=== PATIENT | female | born 1940 | race Caucasian/White ===

== ENCOUNTER 2017-09-13 15:46 | Inpatient (IN) | payer MEDICARE, OTHER ==
[~2017-09-13] VITALS: Ht 149.9 cm; Wt 80.0 kg
[~2017-09-13 15:46] MED LIST: ASPI81TA50 PO; BRIN8DRO RIGHTEYE; CLON0.1T PO; DILT360C26 PO; GABA600T2 PO; HYDR-3245 PO; ISOS30TA8 PO; LATA2.5D3 EACHEYE; LOSA50TA2 PO; NEBI20TA2 PO; NITR0.4T SL; POLY17PO5 PO; RANI150C PO; SENN1TAB7 PO
[2017-09-13] MEDS ORDERED: SODIUM CHLORIDE FLUSH 10ML SYR IVF ONE (16:00)
[2017-09-13 16:19] LABS: HEMATOCRIT 40.7 % (34.6-47.8); HEMOGLOBIN 13.7 g/dL (11.7-16.4); WHITE BLOOD COUNT 14.1 x10^3/uL (3.4-10)
[2017-09-13 16:29] LABS: BLOOD UREA NITROGEN 15 mg/dL (7-18)
[2017-09-13 16:37] LABS: IS PT STATUS REG ER OR PRE ER? YES
[2017-09-13] MEDS ORDERED: SODIUM CHLORIDE 0.9% 1,000 ML IV SCH (18:56)
[2017-09-13] MEDS ORDERED: ONDANSETRON 2MG/ML, 2ML IVPush PRN (19:00)
[2017-09-13] MEDS ORDERED: ENALAPRILAT 1.25 MG/ML, 2ML IVPush PRN (19:00)
[2017-09-13 21:43] VITALS: BP 143/69
[2017-09-13] MEDS ORDERED: HYDROcodone/APAP 5/325 TABLET ONE (22:19)
[2017-09-13] MEDS: HYDROcodone/APAP 5/325 TABLET PO PRN (22:29)
[2017-09-13] MEDS: FAMOTIDINE 20 MG/2 ML IVPush SCH (22:29)
[2017-09-13] MEDS ORDERED: ZOLPIDEM 10MG TABLET PO PRN (22:30)
[2017-09-13 22:57] LABS: IS PT STATUS REG ER OR PRE ER? NO
[2017-09-13] MEDS: DILTIAZEM MC SCH (23:37)
[2017-09-14 01:22] VITALS: BP 116/60
[2017-09-14] MEDS: ACETAMINOPHEN 325 MG TABLET PO PRN ×2 (04:49→17:44)
[2017-09-14 05:10] LABS: HEMATOCRIT 35.8 % (34.6-47.8); HEMOGLOBIN 12.1 g/dL (11.7-16.4); WHITE BLOOD COUNT 18.6 x10^3/uL (3.4-10)
[2017-09-14 05:14] LABS: BLOOD UREA NITROGEN 15 mg/dL (7-18)
[2017-09-14 05:22] LABS: ASPARTATE AMINO TRANSFERASE 27 U/L (15-37)
[2017-09-14 05:24] LABS: IS PT STATUS REG ER OR PRE ER? NO
[2017-09-14 05:47] LABS: DIFF TOTAL CELLS COUNTED 100 CELL DIFF
[2017-09-14 05:49] LABS: VERIFY COUNTS? YES
[2017-09-14] MEDS: HYDROcodone/APAP 5/325 TABLET PO PRN (07:15)
[2017-09-14] MEDS: DILTIAZEM MC SCH ×3 (07:45→20:24)
[2017-09-14 07:52] VITALS: BP 142/78
[2017-09-14] MEDS ORDERED: HYDROmorphone 1 MG/ML, 1ML IV PRN (08:00)
[2017-09-14] MEDS: FAMOTIDINE 20 MG/2 ML IVPush SCH ×2 (08:18→19:32)
[2017-09-14] MEDS: MORPHINE SULFATE 4 MG/ML, 1ML IVPush PRN ×2 (08:18→19:32)
[2017-09-14] MEDS ORDERED: ASPIRIN 81 MG TABLET EC PO SCH (09:00)
[2017-09-14] MEDS ORDERED: DILTIAZEM 60 MG TABLET PO SCH (09:00)
[2017-09-14] MEDS ORDERED: GABAPENTIN 300 MG CAPSULE PO SCH (09:00)
[2017-09-14] MEDS: D5%-LACTATED RINGERS 1,000 ML IV SCH ×2 (12:11→18:30)
[2017-09-14 13:55] VITALS: BP 141/75
[2017-09-14] MEDS ORDERED: CEFOTETAN PMX 2GM/50ML 50 ML IV SCH (14:00)
[2017-09-14] MEDS ORDERED: BUPIVACAINE/PF 0.5% ONE (15:52)
[2017-09-14] MEDS ORDERED: EPINEPHRINE 1 MG/ML, 1ML ONE (15:52)
[2017-09-14] MEDS ORDERED: FENTANYL PF 100 MCG/2ML ONE ×2 (16:09)
[2017-09-14] MEDS ORDERED: LIDOCAINE/PF 2%, 2ML ONE (16:40)
[2017-09-14] MEDS ORDERED: PROPOFOL 10 MG/ML, 20ML ONE (16:40)
[2017-09-14] MEDS ORDERED: SUCCINYLCHOLINE 20 MG/ML, 10ML ONE (16:40)
[2017-09-14] MEDS ORDERED: ROCURONIUM 10 MG/ML ONE ×2 (16:40)
[2017-09-14] MEDS ORDERED: DEXAMETHASONE 4 MG/ML, 1ML ONE (16:40)
[2017-09-14] MEDS ORDERED: ONDANSETRON 2MG/ML, 2ML ONE (16:40)
[2017-09-14] MEDS ORDERED: SUGAMMADEX 200 MG/2 ML IVPush ONE (17:14)
[2017-09-14] MEDS ORDERED: ACETAMINOPHEN 650 MG/20.3 ML UDC ONE (17:32)
[2017-09-14] MEDS ORDERED: ACETAMINOPHEN 325 MG SUPP ONE (17:32)
[2017-09-14] MEDS ORDERED: ACETAMINOPHEN 325 MG TABLET PO PRN (18:00)
[2017-09-14] MEDS ORDERED: OXYcodone 5 MG/5 ML ORAL.SOL UDC PO PRN (18:00)
[2017-09-14] MEDS ORDERED: FENTANYL PF 100 MCG/2ML IV PRN (18:00)
[2017-09-14] MEDS ORDERED: PROMETHAZINE 25 MG/ML, 1ML IV PRN (18:00)
[2017-09-14] MEDS ORDERED: morphine SULFATE 10 MG/ML, 1ML IV PRN (18:00)
[2017-09-14] MEDS ORDERED: LORazepam 2 MG/ML, 1ML IVPush PRN (18:00)
[2017-09-14] MEDS: NS + 20MEQ KCL 1,000 ML IV SCH ×2 (19:00→20:20)
[2017-09-14 19:05] VITALS: BP 146/83
[2017-09-15 00:57] VITALS: BP 151/80
[2017-09-15] MEDS: ACETAMINOPHEN 325 MG TABLET PO PRN (02:18)
[2017-09-15] MEDS: OXYcodone/APAP 5/325MG TABLET PO PRN ×2 (04:54→17:31)
[2017-09-15 07:03] LABS: HEMATOCRIT 35.1 % (34.6-47.8); HEMOGLOBIN 11.9 g/dL (11.7-16.4)
[2017-09-15 07:10] LABS: BLOOD UREA NITROGEN 13 mg/dL (7-18)
[2017-09-15 07:14] LABS: ASPARTATE AMINO TRANSFERASE 632 U/L (15-37)
[2017-09-15 07:32] LABS: DIFF TOTAL CELLS COUNTED 100 CELL DIFF
[2017-09-15 07:33] LABS: VERIFY COUNTS? YES
[2017-09-15 07:40] VITALS: BP 170/78
[2017-09-15] MEDS: DILTIAZEM MC SCH ×2 (08:53→16:25)
[2017-09-15] MEDS ORDERED: DILTIAZEM HCL PO SCH (09:00)
[2017-09-15] MEDS ORDERED: KETOROLAC 30 MG/1 ML IVPush PRN (09:00)
[2017-09-15] MEDS ORDERED: LOSARTAN 50MG TABLET PO SCH (09:00)
[2017-09-15] MEDS: CEFTRIAXONE PMX 2GM/50ML 50 ML IV SCH (09:07)
[2017-09-15] MEDS: FAMOTIDINE 20 MG/2 ML IVPush SCH ×2 (09:07→20:54)
[2017-09-15] MEDS: NEBIVOLOL HCL 20 MG PO SCH (09:08)
[2017-09-15] MEDS: FAMOTIDINE 40 MG TABLET PO SCH ×2 (09:08→20:53)
[2017-09-15] MEDS: METRONIDAZOLE PMX 500MG/100ML 100 ML IV SCH ×2 (11:33→21:19)
[2017-09-15 14:24] VITALS: BP 159/73
[2017-09-15] MEDS ORDERED: ZOLPIDEM 10MG TABLET PO PRN (17:00)
[2017-09-15 18:50] VITALS: BP 134/87
[2017-09-15] MEDS: PREDNISOLONE ACETATE LEFTEYE SCH (20:53)
[2017-09-15] MEDS: NS + 20MEQ KCL 1,000 ML IV SCH (21:19)
[2017-09-15] MEDS: BRIMONIDINE TARTRATE 0.15% EACHEYE SCH (21:19)
[2017-09-16] MEDS: OXYcodone/APAP 5/325MG TABLET PO PRN ×2 (00:51→20:04)
[2017-09-16 01:20] VITALS: BP 154/83
[2017-09-16] MEDS: METRONIDAZOLE PMX 500MG/100ML 100 ML IV SCH ×3 (04:15→21:59)
[2017-09-16 06:17] LABS: HEMATOCRIT 30.6 % (34.6-47.8); HEMOGLOBIN 10.5 g/dL (11.7-16.4); WHITE BLOOD COUNT 16.3 x10^3/uL (3.4-10)
[2017-09-16 06:26] LABS: ASPARTATE AMINO TRANSFERASE 149 U/L (15-37); BLOOD UREA NITROGEN 11 mg/dL (7-18)
[2017-09-16 08:02] VITALS: BP 154/84
[2017-09-16] MEDS: FAMOTIDINE 20 MG/2 ML IVPush SCH ×2 (08:15→21:00)
[2017-09-16] MEDS: CEFTRIAXONE PMX 2GM/50ML 50 ML IV SCH (08:30)
[2017-09-16] MEDS: FAMOTIDINE 40 MG TABLET PO SCH ×2 (08:30→20:04)
[2017-09-16] MEDS: LOSARTAN 50MG TABLET PO SCH (08:30)
[2017-09-16] MEDS: NEBIVOLOL HCL 20 MG PO SCH (08:31)
[2017-09-16] MEDS: DILTIAZEM CD 360 MG PO SCH (08:31)
[2017-09-16] MEDS: PREDNISOLONE ACETATE LEFTEYE SCH ×3 (08:32→20:04)
[2017-09-16 14:57] VITALS: BP 115/65
[2017-09-16 15:15] VITALS: BP 105/53
[2017-09-16] MEDS: NS + 20MEQ KCL 1,000 ML IV SCH (16:00)
[2017-09-16] MEDS: ONDANSETRON 2MG/ML, 2ML IVPush PRN (17:59)
[2017-09-16 18:34] VITALS: BP 145/80
[2017-09-16] MEDS: BRIMONIDINE TARTRATE 0.15% EACHEYE SCH (20:04)
[2017-09-17 00:40] VITALS: BP 120/66
[2017-09-17] MEDS: METRONIDAZOLE PMX 500MG/100ML 100 ML IV SCH ×3 (06:03→21:49)
[2017-09-17] MEDS: OXYcodone/APAP 5/325MG TABLET PO PRN ×2 (06:09→21:08)
[2017-09-17 08:49] VITALS: BP 131/68
[2017-09-17] MEDS: PREDNISOLONE ACETATE LEFTEYE SCH ×3 (09:00→21:08)
[2017-09-17] MEDS: FAMOTIDINE 20 MG/2 ML IVPush SCH ×3 (09:00→20:57)
[2017-09-17] MEDS: DILTIAZEM CD 360 MG PO SCH (09:00)
[2017-09-17] MEDS: NEBIVOLOL HCL 20 MG PO SCH (09:00)
[2017-09-17] MEDS: CEFTRIAXONE PMX 2GM/50ML 50 ML IV SCH (09:02)
[2017-09-17] MEDS: FAMOTIDINE 40 MG TABLET PO SCH ×2 (09:03→21:08)
[2017-09-17] MEDS: LOSARTAN 50MG TABLET PO SCH (09:03)
[2017-09-17 12:29] VITALS: BP 137/53
[2017-09-17 15:03] VITALS: BP 118/57
[2017-09-17 18:54] VITALS: BP 121/47
[2017-09-17] MEDS: BRIMONIDINE TARTRATE 0.15% EACHEYE SCH (21:08)
[2017-09-18 03:45] VITALS: BP 143/63
[2017-09-18] MEDS: OXYcodone/APAP 5/325MG TABLET PO PRN (04:10)
[2017-09-18 05:48] LABS: HEMATOCRIT 30.2 % (34.6-47.8); HEMOGLOBIN 10.3 g/dL (11.7-16.4); WHITE BLOOD COUNT 12.4 x10^3/uL (3.4-10)
[2017-09-18] MEDS: METRONIDAZOLE PMX 500MG/100ML 100 ML IV SCH ×2 (05:48→13:43)
[2017-09-18 06:00] LABS: ASPARTATE AMINO TRANSFERASE 30 U/L (15-37); BLOOD UREA NITROGEN 8 mg/dL (7-18)
[2017-09-18] MEDS: FAMOTIDINE 20 MG/2 ML IVPush SCH (07:17)
[2017-09-18 08:13] VITALS: BP 152/64
[2017-09-18] MEDS: CEFTRIAXONE PMX 2GM/50ML 50 ML IV SCH (08:23)
[2017-09-18] MEDS: LOSARTAN 50MG TABLET PO SCH (08:26)
[2017-09-18] MEDS: NEBIVOLOL HCL 20 MG PO SCH (08:26)
[2017-09-18] MEDS: FAMOTIDINE 40 MG TABLET PO SCH (08:26)
[2017-09-18] MEDS: DILTIAZEM CD 360 MG PO SCH (08:26)
[2017-09-18] MEDS: PREDNISOLONE ACETATE LEFTEYE SCH ×2 (08:27→16:00)
[2017-09-18] MEDS ORDERED: METR500T8 PO (09:45)
[2017-09-18] MEDS ORDERED: POTASSIUM CHLORIDE 20 MEQ TAB.ER.PRT PO ONE (10:00)
[2017-09-18] MEDS: ONDANSETRON 2MG/ML, 2ML IVPush PRN (10:14)
[2017-09-18 13:58] VITALS: BP 119/49
[2017-09-18] MEDS ORDERED: ENALAPRILAT 1.25 MG/ML, 2ML IVPush PRN (16:00)
[2017-09-18] MEDS ORDERED: ACETAMINOPHEN 325 MG TABLET PO PRN (16:00)
[2017-09-18] MEDS ORDERED: ZOLPIDEM 10MG TABLET PO PRN (16:00)
== END 2017-09-18 15:30 | disposition home or self-care (01) | DRG 417 ==
LOC: ED 17:11 → EDIP 17:12 → ED 17:54 → 5SO 19:27 → 4NOR 09-16 15:16
PROVIDERS: ADMIT Family Medicine; ATTEND Family Medicine
PROC: 0FT44ZZ Resection of Gallbladder, Percutaneous Endoscopic Approach (ICD-10-PCS; principal; 2017-09-14 16:30)
DX: K81.0 Acute cholecystitis (principal); N17.0 Acute kidney failure with tubular necrosis; K82.2 Perforation of gallbladder; I11.9 Hypertensive heart disease without heart failure; E66.01 Morbid (severe) obesity due to excess calories; E78.00 Pure hypercholesterolemia, unspecified; K21.9 Gastro-esophageal reflux disease without esophagitis; G24.9 Dystonia, unspecified; E78.5 Hyperlipidemia, unspecified; G47.00 Insomnia, unspecified; G89.29 Other chronic pain; H40.9 Unspecified glaucoma; I16.0 Hypertensive urgency; I25.10 Atherosclerotic heart disease of native coronary artery without angina pectoris; I44.0 Atrioventricular block, first degree; I45.10 Unspecified right bundle-branch block; K66.0 Peritoneal adhesions (postprocedural) (postinfection); K82.8 Other specified diseases of gallbladder; Z68.33 Body mass index [BMI] 33.0-33.9, adult; Z85.038 Personal history of other malignant neoplasm of large intestine; Z90.722 Acquired absence of ovaries, bilateral; Z66 Do not resuscitate
CPT/HCPCS: 36415; 71010; 78227; 80048; 80053; 80076; 82040; 83690; 83735; 84484; 85025; 88304; 93005; 99285; J0171; J0696; J1100; J1170; J1885; J2405; J2704; J3010; J3480; J3490; A9537; C9898; J0330; J7030; J7121; S0028; S0074

== ENCOUNTER 2017-09-21 11:10 | Emergency (ER) | payer MEDICARE, OTHER ==
[~2017-09-21] VITALS: Ht 152.4 cm; Wt 70.0 kg
[~2017-09-21 11:10] MED LIST changes: +METR500T8 PO
[2017-09-21 11:12] VITALS: BP 153/67
[2017-09-21 12:10] LABS: HEMATOCRIT 32.8 % (34.6-47.8); HEMOGLOBIN 11.1 g/dL (11.7-16.4)
[2017-09-21 12:20] LABS: ASPARTATE AMINO TRANSFERASE 51 U/L (15-37); BLOOD UREA NITROGEN 8 mg/dL (7-18)
== END 2017-09-21 13:52 | disposition home or self-care (01) ==
LOC: ED 13:46
DX: Z48.01 Encounter for change or removal of surgical wound dressing (principal); I10 Essential (primary) hypertension; E78.00 Pure hypercholesterolemia, unspecified
CPT/HCPCS: 36415; 80053; 83690; 85025; 99284

== ENCOUNTER 2019-07-10 12:49 | Outpatient (CLI) | payer MEDICARE, OTHER | END 2019-07-10 23:59 | disposition home or self-care (01) | LOC: STAR 12:49 | PROVIDERS: ATTEND Neurological Surgery | DX: Z01.818 Encounter for other preprocedural examination (principal); M47.26 Other spondylosis with radiculopathy, lumbar region; M48.061 Spinal stenosis, lumbar region without neurogenic claudication; I44.0 Atrioventricular block, first degree; I45.10 Unspecified right bundle-branch block; R00.1 Bradycardia, unspecified | CPT/HCPCS: 36415; 71046; 80053; 81001; 85025; 85610; 85730; 87086; 93005 ==

== ENCOUNTER 2019-07-11 11:52 | Outpatient (CLI) | payer MEDICARE, OTHER | END 2019-07-11 23:59 | disposition home or self-care (01) | LOC: CFH 11:52 | PROVIDERS: ATTEND Internal Medicine Cardiovascular Disease | DX: I45.10 Unspecified right bundle-branch block (principal); R53.83 Other fatigue; I10 Essential (primary) hypertension; Z79.899 Other long term (current) drug therapy | CPT/HCPCS: 78452; 93017; A9502; J2785 ==

== ENCOUNTER 2019-07-16 12:40 | Emergency (ER) | payer MEDICARE, OTHER ==
[~2019-07-16] VITALS: Ht 147.3 cm; Wt 75.0 kg
[2019-07-16 17:00] VITALS: BP 142/50
== END 2019-07-16 17:02 | disposition home or self-care (01) ==
LOC: ED 15:12
DX: R10.84 Generalized abdominal pain (principal); R11.2 Nausea with vomiting, unspecified; R10.32 Left lower quadrant pain; R10.11 Right upper quadrant pain; I10 Essential (primary) hypertension; E78.5 Hyperlipidemia, unspecified; E78.00 Pure hypercholesterolemia, unspecified; Z85.038 Personal history of other malignant neoplasm of large intestine
CPT/HCPCS: 36415; 74176; 80053; 81003; 83690; 85025; 99284

== ENCOUNTER 2021-08-07 08:55 | Outpatient (CLI) | payer MEDICARE, OTHER ==
[~2021-08-07 08:55] MED LIST changes: -CLON0.1T PO; +CLON0.1T22 PO; +DIPH25CA61 PO; -GABA600T2 PO; +GABA600T7 PO; +HYDR-3237 PO; -HYDR-3245 PO; +HYDR1TAB53 PO; -LATA2.5D3 EACHEYE; +LATA2.5D4 EACHEYE; +LOSA100T14 PO; +METR-90 PO; -METR500T8 PO; -NITR0.4T SL; +NITR0.4T41 SL; +OMEP-110 PO; +ROSU10TA2 PO; +SENN-177 PO; -SENN1TAB7 PO; +TIMO5DRO33 EACHEYE; +TRAZ50TA66 PO; +Vitamin D PO
[2021-08-07 09:27] LABS: BASOPHILS % (AUTO) 1 % (0-1); EOSINOPHILS % (AUTO) 2 % (1-7); LYMPHOCYTES % (AUTO) 32 % (22-44); MEAN CORPUSCULAR HEMOGLOBIN 31.5 pg (27.0-34.8); MEAN CORPUSCULAR HGB CONC 34.3 g/dL (32.4-35.8); MONOCYTES % (AUTO) 8 % (2-9); NEUTROPHILS % (AUTO) 58 % (42-75); PLATELET COUNT 252 x10^3/uL (130-400); RED BLOOD COUNT 4.07 x10^6/uL (3.82-5.3)
[2021-08-07 09:37] LABS: ALANINE AMINOTRANSFERASE 114 U/L (12-78); ALBUMIN 3.4 g/dL (3.4-5.0); ANION GAP 6 mmol/L (5-15); CALCIUM 8.9 mg/dL (8.5-10.1); CHLORIDE 110 mmol/L (98-107); CREATININE 0.94 mg/dL (0.55-1.02)
[2021-08-07 09:39] LABS: ALKALINE PHOSPHATASE 211 U/L (45-117); BILIRUBIN,TOTAL 0.8 mg/dL (0.2-1.0); TOTAL PROTEIN 6.9 g/dL (6.4-8.2)
== END 2021-08-07 23:59 | disposition home or self-care (01) ==
LOC: LAB 08:55
PROVIDERS: ATTEND Internal Medicine Cardiovascular Disease
DX: E11.9 Type 2 diabetes mellitus without complications (principal); E78.2 Mixed hyperlipidemia; I25.119 Atherosclerotic heart disease of native coronary artery with unspecified angina pectoris; R53.83 Other fatigue
CPT/HCPCS: 36415; 80053; 83036; 85025